=== PATIENT | male | born 1975 | race African-American/Black ===

== ENCOUNTER 2018-07-13 16:35 | Inpatient (IN) | payer BC, OTHER ==
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
[2018-07-13] MEDS ORDERED: ALBUTEROL SO4 2.5/IPRATROPIUM 0.5 INH SOL 3 ML VIAL.NEB. NEB ONE ×2 (19:59→20:42)
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
[2018-07-13 20:33] LABS: BASO % 0.8 % (0-2.0); EOS % 0.1 % (0-4.5); HEMATOCRIT 38.6 % (35.4-49); HEMOGLOBIN 13.2 GM/dL (11.7-16.9); LYMPH % 20.7 % (8-40); MCH 31.8 pg (25.7-33.7); MCHC 34.3 g/dl (32.0-35.9); MEAN CELL VOLUME 92.8 fl (80-96); MEAN PLT VOLUME 8.9 fl (7.5-11.1); MONO % 13.9 % (3.8-10.2); NEUT % 64.5 % (42.8-82.8); RBC 4.16 M/mm3 (4.00-5.60); RDW 13.4 % (11.9-15.9); WHITE BLOOD COUNT 5.9 K/mm3 (4.0-10.0)
[2018-07-13 20:53] LABS: URINE APPEARANCE CLEAR; URINE COLOR AMBER; URINE GLUCOSE (UA) NEGATIVE (NEGATIVE); URINE KETONE NEGATIVE (NEGATIVE); URINE LEUK ESTERASE NEGATIVE (NEGATIVE); URINE NITRITE NEGATIVE (NEGATIVE); URINE PROTEIN 1+ (NEGATIVE); URINE UROBILINOGEN 4.0 E.U/dl mg/dL (0.2-1.0)
[2018-07-13 20:54] LABS: EPI CELLS RARE /HPF (FEW); URINE MUCUS MANY
[2018-07-13 20:55] LABS: ALBUMIN 3.8 g/dl (3.4-5.0); ALK PHOS 88 U/L (45-117); ANION GAP 9 (8-16); BILIRUBIN,TOTAL 1.1 mg/dL (0.2-1.0); BLOOD UREA NITROGEN 10 mg/dL (7-18); CALCIUM 9.5 mg/dL (8.5-10.1); CHLORIDE 99 mmol/L (98-107); CO2 29 mmol/L (21-32); CREATININE 1.6 mg/dL (0.7-1.3); GLUCOSE,RANDOM 103 mg/dL (74-106); POTASSIUM 4.1 mmol/L (3.5-5.1); SGOT/AST 95 U/L (15-37); SGPT/ALT 165 U/L (12-78); SODIUM 137 mmol/L (136-145)
[2018-07-13 20:59] LABS: PLATELET COUNT 262 K/MM3 (134-434); PLATELET ESTIMATE ADEQUATE
[2018-07-13] MEDS ORDERED: SODIUM CHLORIDE 0.9% 500 ML INFUS.BAG IV ONE (21:25)
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
[2018-07-14] MEDS ORDERED: cefTRIAXone SODIUM 1 GM VIAL ONE ×2 (02:35→21:10)
[2018-07-14] MEDS ORDERED: DEXTROSE 5%-WATER - 50 ML IVPB ONE ×2 (02:35→21:10)
[2018-07-14] MEDS: CEFTRIAXONE 1 GM in DEXTROSE 5%-WATER - 50 ML IVPB SCH ×4 (02:50→21:14)
[2018-07-14] MEDS: predniSONE 20 MG TABLET (UD) PO SCH (02:51)
[2018-07-14] MEDS: SODIUM CHLORIDE 1,000 ML IV SCH ×2 (02:52→15:53)
[2018-07-14] MEDS: AZITHROMYCIN IVPB 500 MG in DEXTROSE 5%-WATER - 250 ML IVPB SCH ×2 (03:30→22:50)
[2018-07-14 04:30] VITALS: BMI 33.7
[2018-07-14] MEDS ORDERED: PT OWN MED DRAWER 7, Y5N ONE ×2 (06:14→12:31)
--- NOTE | 2018-07-14 07:01 | HP ---
CHIEF COMPLAINT:Cough, fever and chills PCP:Dr. Hayward HISTORY OF PRESENT ILLNESS: Patient is a 43 year old male with past medical history of asthma, presented with cough, fever, chills and night sweats for 3 days. Patient had productive cough with white sputum that started 3 days ago. He consulted PCP the next day, was considered to have pneumonia and was given Levaquin 750 mg BID. One day prior, patient had CXR, called by PCP to have pneumonia vs aelectasis and was told to go to the ED. Patient also complained of mild diffuse abdominal pain 5 days ago after eating ground burger. This was accompanied by watery diarrhea that resolved three days ago. Patient was also known to have started on some supplements that contains L- arginine and creatine 1 week ago. Patient denies chest pain, SOB, palpitations, diarrhea, constipation, dysuria. ER course was notable for: (1)Cr 1.6, AST 95, ALT 165 (2)chest CT - right middle lobe pneumonia (3)RUQ U/S - no abnormal findings Recent Travel:denies any recent travel PAST MEDICAL HISTORY: Asthma PAST SURGICAL HISTORY: none Social History: Smoking: nonsmoker Alcohol:occasional EtOH drinker Drugs: denies illicit drug use Family History: Allergies No Known Allergies Allergy (Verified 07/13/18 16:51) HOME MEDICATIONS: Home Medications Medication Instructions Recorded Ipratropium/Albuterol Sulfate 4 gm IH BID 10/26/16 [Combivent Respimat Inhal [place]] REVIEW OF SYSTEMS CONSTITUTIONAL:+fever, chills , generalized weakness Absent: diaphoresis, malaise, loss of appetite, weight change HEENT: Absent: rhinorrhea, nasal congestion, throat pain, throat swelling, difficulty swallowing, mouth swelling, ear pain, eye pain, visual changes CARDIOVASCULAR: Absent: chest pain, syncope, palpitations, irregular heart rate, lightheadedness , peripheral edema RESPIRATORY: +cough Absent: shortness of breath, dyspnea with exertion, orthopnea, wheezing, stridor , hemoptysis GASTROINTESTINAL: Absent: abdominal pain, abdominal distension, nausea, vomiting, diarrhea, constipation, melena, hematochezia GENITOURINARY: Absent: dysuria, frequency, urgency, hesitancy, hematuria, flank pain, genital pain MUSCULOSKELETAL: Absent: myalgia, arthralgia, joint swelling, back pain, neck pain SKIN: Absent: rash, itching, pallor HEMATOLOGIC/IMMUNOLOGIC: Absent: easy bleeding, easy bruising, lymphadenopathy, frequent infections ENDOCRINE: Absent: unexplained weight gain, unexplained weight loss, heat intolerance, cold intolerance NEUROLOGIC: Absent: headache, focal weakness or paresthesias, dizziness, unsteady gait, seizure, mental status changes, bladder or bowel incontinence PSYCHIATRIC: Absent: anxiety, depression, suicidal or homicidal ideation, hallucinations. PHYSICAL EXAMINATION Vital Signs - 24 hr 07/13/18 07/14/18 16:52 04:08 Temperature 99.1 F 99.3 F Pulse Rate 82 80 Respiratory 16 16 Rate Blood Pressure 125/76 108/56 O2 Sat by Pulse 97 Oximetry (%) GENERAL: Awake, alert, and fully oriented, in no acute distress. HEAD: Normal with no signs of trauma. EYES: PERRLA, EOMI, sclera anicteric, conjunctiva clear. No lid lag. EARS, NOSE, THROAT: Ears normal, nares patent, oropharynx clear without exudates. Moist mucous membranes. NECK: Normal range of motion, supple without lymphadenopathy, JVD, or masses. LUNGS: +crackles, R, clear to auscultation, L HEART: Regular rate and rhythm, normal S1 and S2 without murmur, rub or gallop. ABDOMEN: Soft, nontender, not distended, normoactive bowel sounds. MUSCULOSKELETAL: Normal range of motion at all joints. No bony deformities or tenderness. No CVA tenderness. UPPER EXTREMITIES: 2+ pulses, warm, well-perfused. No cyanosis. No clubbing. No peripheral edema. LOWER EXTREMITIES: 2+ pulses, warm, well-perfused. No calf tenderness. No peripheral edema. NEUROLOGICAL: Cranial nerves II-XII intact. Normal speech. Normal gait. PSYCHIATRIC: Cooperative. Good eye contact. Appropriate mood and affect. SKIN: Warm, dry, normal turgor, no rashes or lesions. Laboratory Results - last 24 hr 07/13/18 07/13/18 07/13/18 20:20 20:20 20:30 WBC 5.9 RBC 4.16 Hgb 13.2 Hct 38.6 MCV 92.8 MCH 31.8 MCHC 34.3 RDW 13.4 Plt Count 262 MPV 8.9 Absolute Neuts (auto) 3.8 Neutrophils % 64.5 Lymphocytes % 20.7 Monocytes % 13.9 H Eosinophils % 0.1 Basophils % 0.8 Nucleated RBC % 0 Platelet Estimate Adequate Platelet Comment Rare giant plts Sodium 137 Potassium 4.1 Chloride 99 Carbon Dioxide 29 Anion Gap 9 BUN 10 Creatinine 1.6 H Creat Clearance w eGFR 47.41 Random Glucose 103 Calcium 9.5 Total Bilirubin 1.1 H AST 95 H ALT 165 H Alkaline Phosphatase 88 Total Protein 8.0 Albumin 3.8 Lipase Urine Color Zaida Urine Appearance Clear Urine pH 5.0 Ur Specific Ar[place]illa 1.030 Urine Protein 1+ H Urine Glucose (UA) Negative Urine Ketones Negative Urine Blood Negative Urine Nitrite Negative Urine Bilirubin 2.0 Urine Urobilinogen 4.0 e.u/dl Ur Leukocyte Esterase Negative Urine WBC (Auto) 1 Urine RBC (Auto) 6 Ur Epithelial Cells Rare Urine Mucus Many 07/13/18 22:29 WBC RBC Hgb Hct MCV MCH MCHC RDW Plt Count MPV Absolute Neuts (auto) Neutrophils % Lymphocytes % Monocytes % Eosinophils % Basophils % Nucleated RBC % Platelet Estimate Platelet Comment Sodium Potassium Chloride Carbon Dioxide Anion Gap BUN Creatinine Creat Clearance w eGFR Random Glucose Calcium Total Bilirubin AST ALT Alkaline Phosphatase Total Protein Albumin Lipase 135 Urine Color Urine Appearance Urine pH Ur Specific [place] Urine Protein Urine Glucose (UA) Urine Ketones Urine Blood Urine Nitrite Urine Bilirubin Urine Urobilinogen Ur Leukocyte Esterase Urine WBC (Auto) Urine RBC (Auto) Ur Epithelial Cells Urine Mucus CBC, BMP 07/13/18 20:20 07/13/18 20:20 ASSESSMENT/PLAN: Patient is a 43 year old male with past medical history of asthma, presented with cough, fever, chills and night sweats for 3 days. #Community acquired pneumonia -Chest CT -right middle lobe pneumonia, borderline mediastinal LAD indeterminate -Started Rocephin 1 gm and Azithromycin 500 mg -Prednisone 40 mg PO, Duoneb and Symbicort ordered. #Elevated LFTs: patient recently started on supplements -Hepatitis profile ordered -Trend LFTs. -IV fluid started #FEN -IV NS (0.9%) at 100ml/hr -electrolytes wnl, routine bmp monitoring -regular diet #Prophylaxis -Heparin 5000 unit sq tid #Disposition -admit to obs -full code Visit type - Emergency Visit Emergency Visit: Yes ED Registration Date: 07/13/18 Care time: The patient presented to the Emergency Department on the above date and was hospitalized for further evaluation of their emergent condition. - New Patient This patient is new to me today: Yes Date on this admission: 07/14/18 - Critical Care Critical Care patient: No Hospitalist Screening - Colonoscopy Questionnaire Colonoscopy Questionnaire: Colonoscopy Questionnaire - Patient: 50 - 75 years old and never had a screening colonoscopy: Unknown History of colon or rectal polyps, or CA: Unknown History of IBD, Crohn's disease or UC: Unknown History of abdominal radiation therapy as a child: Unknown - Relative: 1 with colon or rectal CA, or polyps at age 60 or younger: Unknown Colon or rectal CA diagnosed at age 45 or younger: Unknown Multiple relatives with colon or rectal CA: Unknown - Outcome: Screening Result: Negative Screen
[2018-07-14] MEDS: ALBUTEROL SO4 2.5/IPRATROPIUM 0.5 INH SOL 3 ML VIAL.NEB. NEB SCH ×2 (08:43→20:55)
[2018-07-14 09:52] LABS: BASO % 0.5 % (0-2.0); HEMATOCRIT 35.5 % (35.4-49); HEMOGLOBIN 12.6 GM/dL (11.7-16.9); LYMPH % 18.8 % (8-40); MCH 32.8 pg (25.7-33.7); MCHC 35.4 g/dl (32.0-35.9); MEAN CELL VOLUME 92.6 fl (80-96); MEAN PLT VOLUME 8.7 fl (7.5-11.1); MONO % 3.8 % (3.8-10.2); NEUT % 76.9 % (42.8-82.8); PLATELET COUNT 267 K/MM3 (134-434); RBC 3.83 M/mm3 (4.00-5.60); RDW 13.3 % (11.9-15.9); WHITE BLOOD COUNT 4.9 K/mm3 (4.0-10.0)
[2018-07-14] MEDS ORDERED: CEFTRIAXONE 1 GM in DEXTROSE 5%-WATER - 100 ML IVPB SCH (10:00)
[2018-07-14] MEDS ORDERED: AZITHROMYCIN IVPB 500 MG in DEXTROSE 5%-WATER - 250 ML IVPB SCH (10:00)
--- NOTE | 2018-07-14 10:00 | EKG ---
Test Reason : Blood Pressure : / mmHG Vent. Rate : 082 BPM Atrial Rate : 082 BPM P-R Int : 176 ms QRS Dur : 092 ms QT Int : 380 ms P-R-T Axes : 056 -02 -03 degrees QTc Int : 443 ms NORMAL SINUS RHYTHM NONSPECIFIC T WAVE ABNORMALITY ABNORMAL ECG NO PREVIOUS ECGS AVAILABLE Confirmed by BRYAN SOTO MD ([id number]) on 07/14/2018 10:00:28 AM Referred By: Confirmed By:BRYAN SOTO MD
[2018-07-14 10:15] LABS: ANION GAP 11 (8-16); BLOOD UREA NITROGEN 10 mg/dL (7-18); CALCIUM 9.3 mg/dL (8.5-10.1); CHLORIDE 103 mmol/L (98-107); CO2 25 mmol/L (21-32); CREATININE 1.3 mg/dL (0.7-1.3); GLUCOSE,RANDOM 111 mg/dL (74-106); POTASSIUM 4.4 mmol/L (3.5-5.1); SODIUM 139 mmol/L (136-145)
--- NOTE | 2018-07-14 11:53 | PN ---
<Hayley Vera - Last Filed: 07/14/18 12:34> Physical Exam: SUBJECTIVE: Patient seen and examined at bedside. Pt reports feeling clammy with mild sweating. He also admits to shortness of breath, but has improved since admission. Admits to productive cough w/ clear sputum. Denies fever/chills , nausea/vomiting, headaches/dizziness. Admits to poor appetite. OBJECTIVE: Vital Signs Vital Signs Temperature 99.3 F 07/14/18 04:08 Pulse Rate 80 07/14/18 04:08 Respiratory Rate 16 07/14/18 04:08 Blood Pressure 108/56 07/14/18 04:08 O2 Sat by Pulse Oximetry (%) 97 07/13/18 16:52 GENERAL: Awake, alert, and fully oriented, in no acute distress. mild diaphoresis. HEENT: AT/NC. EOMI. Moist mucus membranes. NECK: Normal range of motion, supple without lymphadenopathy, JVD, or masses. LUNGS: +crackles, R, Symmetric chest rise. HEART: Regular rate and rhythm, normal S1 and S2 without murmur, rub or gallop. ABDOMEN: Soft, nontender, not distended, normoactive bowel sounds. MUSCULOSKELETAL: Normal range of motion at all joints. No bony deformities or tenderness. No CVA tenderness. UPPER EXTREMITIES: 2+ pulses, warm, well-perfused. No cyanosis. No clubbing. No peripheral edema. LOWER EXTREMITIES: 2+ pulses, warm, well-perfused. No calf tenderness. No peripheral edema. NEUROLOGICAL: Cranial nerves II-XII intact. Normal speech. Normal gait. PSYCHIATRIC: Cooperative. Good eye contact. Appropriate mood and affect. SKIN: Warm, dry, normal turgor, no rashes or lesions. Laboratory Results - last 24 hr CBC, BMP 07/14/18 09:10 07/14/18 09:10 Hepatic Panel Total Bilirubin 1.1 mg/dL (0.2-1.0) H 07/13/18 20:20 AST 95 U/L (15-37) H 07/13/18 20:20 ALT 165 U/L (12-78) H 07/13/18 20:20 Alkaline Phosphatase 88 U/L (45-117) 07/13/18 20:20 Albumin 3.8 g/dl (3.4-5.0) 07/13/18 20:20 Home Medication List Medication Instructions Recorded Confirmed Type Ipratropium/Albuterol Sulfate 4 gm IH BID 10/26/16 10/28/16 History [Combivent Respimat Inhal Citronelle] Active Medications Active Medications Albuterol/Ipratropium (Duoneb -) 1 amp NEB RBID [facility] Last Admin: 07/14/18 08:43 Dose: 1 amp Budesonide/Formoterol Fumarate (Symbicort 80/4.5mcg -) 2 puff IH BID [facility] Heparin Sodium (Porcine) (Heparin -) 5,000 unit SQ TID LEO Sodium Chloride (Normal Saline -) 1,000 mls @ 100 mls/hr IV ASDIR [facility] Last Admin: 07/14/18 02:52 Dose: 100 mls/hr Azithromycin 500 mg/ Dextrose 250 mls @ 250 mls/hr IVPB HS [facility] Last Admin: 07/14/18 03:30 Dose: 250 mls/hr Ceftriaxone Sodium 1 gm/ (Dextrose) 50 mls @ 100 mls/hr IVPB HS [facility]; Protocol Last Admin: 07/14/18 02:50 Dose: 100 mls/hr Prednisone (Deltasone -) 40 mg PO DAILY [facility] Last Admin: 07/14/18 02:51 Dose: 40 mg IMAGING: CXR: Right middle lobe pneumonia. CT chest: Right middle lobe consolidation/pneumonia as well as mild atelectatic changes in both lower lobes and lingular segment of the left upper lobe. Cannot rule out superimposed infiltrates. No pneumothorax or pleural effusion are identified. Follow-up is needed. Subcentimeter and borderline paratracheal and precarinal lymph nodes which are nonspecific RUQ Abd U/s: Negative exam. No definite sonographic abnormality is identified as discussed above. ASSESSMENT/PLAN: 43M with past medical history of asthma, presented with cough, fever, chills and night sweats for 3 days admitted for R middle lobe pna. #Community acquired pneumonia -Chest CT: R middle lobe pna, borderline mediastinal LAD indeterminate -cont Ceftriaxone 50cc @ 100cc/hr IVPB HS -cont Azithromycin 250cc @250cc/hr IVPB HS -cont Prednisone 40 mg PO QD #Asthma -cont Duoneb -cont Symbicort #Elevated LFTs; Possibly due to new exercise supplement pt began taking, creatine and l-arginine. -AST 96, ALT 165; cont to trend -f/u hepatitis panel -IV NS @ 100cc/hr #FEN -IV NS @ 100cc/hr -electrolytes wnl, routine bmp monitoring -regular diet #Prophylaxis -Heparin 5000U SQ TID dispo -cont to monitor on obs -full code Visit type - Emergency Visit Emergency Visit: Yes ED Registration Date: 07/13/18 Care time: The patient presented to the Emergency Department on the above date and was hospitalized for further evaluation of their emergent condition. - New Patient This patient is new to me today: Yes Date on this admission: 07/14/18 - Critical Care Critical Care patient: No <Tiffany Armendariz - Last Filed: 07/14/18 18:11> Physical Exam: Patient is comfortable with no acute distress. Vital Signs Temperature 98.1 F 07/14/18 17:26 Pulse Rate 67 07/14/18 17:26 Respiratory Rate 20 07/14/18 17:26 Blood Pressure 112/65 07/14/18 17:26 O2 Sat by Pulse Oximetry (%) 94 L 07/14/18 09:00 CBCD WBC 4.9 K/mm3 (4.0-10.0) 07/14/18 09:10 RBC 3.83 M/mm3 (4.00-5.60) L 07/14/18 09:10 Hgb 12.6 GM/dL (11.7-16.9) 07/14/18 09:10 Hct 35.5 % (35.4-49) 07/14/18 09:10 MCV 92.6 fl (80-96) 07/14/18 09:10 MCHC 35.4 g/dl (32.0-35.9) 07/14/18 09:10 RDW 13.3 % (11.9-15.9) 07/14/18 09:10 Plt Count 267 K/MM3 (134-434) 07/14/18 09:10 MPV 8.7 fl (7.5-11.1) 07/14/18 09:10 CMP Sodium 139 mmol/L (136-145) 07/14/18 09:10 Potassium 4.4 mmol/L (3.5-5.1) 07/14/18 09:10 Chloride 103 mmol/L (98-107) 07/14/18 09:10 Carbon Dioxide 25 mmol/L (21-32) 07/14/18 09:10 Anion Gap 11 (8-16) 07/14/18 09:10 BUN 10 mg/dL (7-18) 07/14/18 09:10 Creatinine 1.3 mg/dL (0.7-1.3) 07/14/18 09:10 Creat Clearance w eGFR > 60 (>60) 07/14/18 09:10 Random Glucose 111 mg/dL (74-106) H 07/14/18 09:10 Calcium 9.3 mg/dL (8.5-10.1) 07/14/18 09:10 Total Bilirubin 1.1 mg/dL (0.2-1.0) H 07/13/18 20:20 AST 95 U/L (15-37) H 07/13/18 20:20 ALT 165 U/L (12-78) H 07/13/18 20:20 Alkaline Phosphatase 88 U/L (45-117) 07/13/18 20:20 Total Protein 8.0 g/dl (6.4-8.2) 07/13/18 20:20 Albumin 3.8 g/dl (3.4-5.0) 07/13/18 20:20 Current Medications Generic Name Dose Route Start Last Admin Trade Name Freq PRN Reason Stop Dose Admin Albuterol/Ipratropium 1 amp 07/14/18 08:00 07/14/18 08:43 Duoneb - NEB 1 amp RBID LEO Administration Budesonide/Formoterol Fumarate 2 puff 07/14/18 10:00 07/14/18 12:36 Symbicort 80/4.5mcg - IH 2 puff BID LEO Administration Heparin Sodium (Porcine) 5,000 unit 07/14/18 14:00 07/14/18 14:42 Heparin - SQ 5,000 unit TID [facility]O Administration Sodium Chloride 1,000 mls @ 100 mls/hr 07/14/18 01:30 07/14/18 15:53 Normal Saline - IV 100 mls/hr ASDIR [facility]O Administration Azithromycin 500 mg/ Dextrose 250 mls @ 250 mls/hr 07/14/18 01:45 07/14/18 03 :30 IVPB 250 mls/hr HS LEO Administration Ceftriaxone Sodium 1 gm/ 50 mls @ 100 mls/hr 07/14/18 02:45 07/14/18 02:50 Dextrose IVPB 100 mls/hr HS [facility]O Administration Protocol Prednisone 40 mg 07/14/18 01:30 07/14/18 02:51 Deltasone - PO 40 mg DAILY [facility] Administration Home Medications Medication Instructions Recorded Budesonide [Pulmicort Flexhaler] 180 mcg IH BID 07/14/18 Clindamycin HCl 150 mg PO TID 07/14/18 Ibuprofen 800 mg PO Q6H PRN 07/14/18 Levofloxacin 750 mg PO DAILY 07/14/18 Pantoprazole Sodium 40 mg PO DAILY 07/14/18 # Acute Pneumonia : on Rocephin IV 1gm daily, and Zithromax 500mg IV daily . patient was on po Levaquin 750mg daily. was treated partially.
[2018-07-14] MEDS: BUDESONIDE/FORMETEROL FUMARATE 80/4.5 mcg INHALER IH SCH ×2 (12:36→21:13)
--- NOTE | 2018-07-14 12:37 | ECHO ---
Name: RAAD GLEZ Exam:Adult Echocardiogram Study Date: 07/14/2018 08:01 AM Age: 43 yrs Reason For Study: RULE OUT CHF Height: 68 in Weight: 217 lb BSA: 2.1 m2 MMode/2D Measurements & Calculations IVSd: 1.1 cm Ao root diam: 3.1 cm LVIDd: 4.6 cm LA dimension: 3.2 cm LVIDs: 2.9 cm LVPWd: 0.98 cm EDV(Teich): 97.7 ml ESV(Teich): 31.4 ml Doppler Measurements & Calculations MV E max ronald: 111.0 cm/sec TR max ronald: 258.6 cm/sec MV A max ronald: 64.0 cm/sec TR max P.7 mmHg MV E/A: 1.7 MV dec time: 0.51 sec Med Peak E' Ronald: 9.7 cm/sec PI Vmax: 104.5 cm/sec Med E/e': 11.5 Lat Peak E' Ronald: 12.5 cm/sec Lat E/e': 8.9 Procedure A complete two-dimensional transthoracic echocardiogram was performed (2D, M-mode, Doppler and color flow Doppler). Left Ventricle The left ventricular size, thickness and function are normal. Ejection Fraction = 60-65%. The left ve ntricular wall motion is normal. Right Ventricle The right ventricle is normal in size and function. Atria Normal left and right atrial size and function. Mitral Valve There is no mitral regurgitation noted. Tricuspid Valve There is trace tricuspid regurgitation. There was insufficient TR detected to calculate RV systolic p ressure. Aortic Valve The aortic valve is trileaflet. No hemodynamically significant valvular aortic stenosis. No aortic regurgitation is present. Pulmonic Valve There is no pulmonic valvular regurgitation. Great Vessels The aortic root is normal size. Pericardium/Pleura There is no pericardial effusion. Interpretation Summary The left ventricular size, thickness and function are normal. The right ventricle is normal in size and function. There is trace tricuspid regurgitation. MD Raleigh Kaplan 07/14/2018 12:36 PM
[2018-07-14] MEDS: HEPARIN NA (PORCINE) 5,000 UNITS/ML 1ML VIAL SQ SCH ×2 (14:42→21:14)
[2018-07-15 06:16] LABS: HEP.C VIRUS AB 0.1 s/co ratio (0.0-0.9)
[2018-07-15] MEDS: SODIUM CHLORIDE 1,000 ML IV SCH (06:46)
[2018-07-15] MEDS: HEPARIN NA (PORCINE) 5,000 UNITS/ML 1ML VIAL SQ SCH ×2 (06:46→14:40)
[2018-07-15 07:15] LABS: HEMATOCRIT 33.2 % (35.4-49); HEMOGLOBIN 11.3 GM/dL (11.7-16.9); MCH 32.3 pg (25.7-33.7); MCHC 34.2 g/dl (32.0-35.9); MEAN CELL VOLUME 94.5 fl (80-96); MEAN PLT VOLUME 8.8 fl (7.5-11.1); PLATELET COUNT 286 K/MM3 (134-434); RBC 3.51 M/mm3 (4.00-5.60); RDW 13.2 % (11.9-15.9); WHITE BLOOD COUNT 5.5 K/mm3 (4.0-10.0)
[2018-07-15 07:54] LABS: ALBUMIN 2.9 g/dl (3.4-5.0); ANION GAP 8 (8-16); BLOOD UREA NITROGEN 10 mg/dL (7-18); CALCIUM 8.5 mg/dL (8.5-10.1); CHLORIDE 107 mmol/L (98-107); CO2 27 mmol/L (21-32); GLUCOSE,RANDOM 85 mg/dL (74-106); POTASSIUM 4.4 mmol/L (3.5-5.1); SODIUM 142 mmol/L (136-145)
[2018-07-15 07:57] LABS: ALK PHOS 73 U/L (45-117); BILIRUBIN,TOTAL 0.6 mg/dL (0.2-1.0); CREATININE 1.2 mg/dL (0.7-1.3); SGOT/AST 171 U/L (15-37); SGPT/ALT 275 U/L (12-78); TOT PROT 5.9 g/dl (6.4-8.2)
[2018-07-15] MEDS: ALBUTEROL SO4 2.5/IPRATROPIUM 0.5 INH SOL 3 ML VIAL.NEB. NEB SCH (08:12)
--- NOTE | 2018-07-15 09:23 | PN ---
Physical Exam: SUBJECTIVE: Patient seen and examined at bedside. No acute events overnight. OBJECTIVE: Vital Signs Period Temp Pulse Resp BP Sys/[place] Pulse Ox Last 24 Hr 97.7 F-98.1 F 60-67 20-20 96-112/54-65 95 GENERAL: Awake, alert, and fully oriented, in no acute distress. HEENT: AT/NC. EOMI. Moist mucus membranes. NECK: Normal range of motion, supple without lymphadenopathy, JVD, or masses. LUNGS: Diminished breath sounds in R lower lung base. Symmetric chest rise. HEART: Regular rate and rhythm, normal S1 and S2 without murmur, rub or gallop. ABDOMEN: Soft, nontender, not distended, normoactive bowel sounds. MUSCULOSKELETAL: Normal range of motion at all joints. No bony deformities or tenderness. No CVA tenderness. UPPER EXTREMITIES: 2+ pulses, warm, well-perfused. No cyanosis. No clubbing. No peripheral edema. LOWER EXTREMITIES: 2+ pulses, warm, well-perfused. No calf tenderness. No peripheral edema. NEUROLOGICAL: Cranial nerves II-XII intact. Normal speech. Normal gait. PSYCHIATRIC: Cooperative. Good eye contact. Appropriate mood and affect. SKIN: Warm, dry, normal turgor, no rashes or lesions. Laboratory Results - last 24 hr CBC, BMP 07/15/18 06:00 07/15/18 06:00 Hepatic Panel Total Bilirubin 0.6 mg/dL (0.2-1.0) 07/15/18 06:00 AST 171 U/L (15-37) H D 07/15/18 06:00 ALT 275 U/L (12-78) H D 07/15/18 06:00 Alkaline Phosphatase 73 U/L (45-117) D 07/15/18 06:00 Albumin 2.9 g/dl (3.4-5.0) L 07/15/18 06:00 Active Medications Albuterol/Ipratropium (Duoneb -) 1 amp NEB RBID [facility] Last Admin: 07/15/18 08:12 Dose: 1 amp Budesonide/Formoterol Fumarate (Symbicort 80/4.5mcg -) 2 puff IH BID [facility] Last Admin: 07/14/18 21:13 Dose: Not Given Heparin Sodium (Porcine) (Heparin -) 5,000 unit SQ TID [facility] Last Admin: 07/15/18 06:46 Dose: 5,000 unit Sodium Chloride (Normal Saline -) 1,000 mls @ 100 mls/hr IV ASDIR [facility] Last Admin: 07/15/18 06:46 Dose: 100 mls/hr Azithromycin 500 mg/ Dextrose 250 mls @ 250 mls/hr IVPB HS [facility] Last Admin: 07/14/18 22:50 Dose: 250 mls/hr Ceftriaxone Sodium 1 gm/ (Dextrose) 50 mls @ 100 mls/hr IVPB HS [facility]; Protocol Last Admin: 07/14/18 21:14 Dose: 100 mls/hr Prednisone (Deltasone -) 40 mg PO DAILY [facility] Last Admin: 07/14/18 02:51 Dose: 40 mg IMAGING: CXR: Right middle lobe pneumonia. CT chest: Right middle lobe consolidation/pneumonia as well as mild atelectatic changes in both lower lobes and lingular segment of the left upper lobe. Cannot rule out superimposed infiltrates. No pneumothorax or pleural effusion are identified. Follow-up is needed. Subcentimeter and borderline paratracheal and precarinal lymph nodes which are nonspecific RUQ Abd U/s: Negative exam. No definite sonographic abnormality is identified as discussed above. ASSESSMENT/PLAN: 43M with past medical history of asthma, presented with cough, fever, chills and night sweats for 3 days admitted for R middle lobe pna. #Community acquired pneumonia -Chest CT: R middle lobe pna, borderline mediastinal LAD indeterminate -cont Ceftriaxone 50cc @ 100cc/hr IVPB HS -cont Azithromycin 250cc @250cc/hr IVPB HS -cont Prednisone 40 mg PO QD #Asthma -cont Duoneb -cont Symbicort #Elevated LFTs; likely acute reactive hepatitis to the ongoing pna -f/u hepatitis panel -Per GI: Rec to stop taking all non-essential med/supplements, trend LFTs #Prophylaxis -Heparin 5000U SQ TID #FEN -IV NS @ 100cc/hr -electrolytes wnl, routine bmp monitoring -regular diet dispo -cont to monitor on obs -full code Visit type - Emergency Visit Emergency Visit: Yes ED Registration Date: 07/15/18 Care time: The patient presented to the Emergency Department on the above date and was hospitalized for further evaluation of their emergent condition. - New Patient This patient is new to me today: No - Critical Care Critical Care patient: No
[2018-07-15] MEDS ORDERED: SODIUM CHLORIDE 1,000 ML IV SCH (09:45)
[2018-07-15] MEDS: predniSONE 20 MG TABLET (UD) PO SCH (10:11)
[2018-07-15] MEDS: BUDESONIDE/FORMETEROL FUMARATE 80/4.5 mcg INHALER IH SCH (10:11)
--- NOTE | 2018-07-15 14:38 | PN ---
Teaching Attending Note Name of Resident: Hayley Vera ATTENDING PHYSICIAN STATEMENT I saw and evaluated the patient. I reviewed the resident's note and discussed the case with the resident. I agree with the resident's findings and plan as documented. SUBJECTIVE: Comfortable with no further shortenss of breath, no nausea or vomting. OBJECTIVE: Vital Signs Temperature 98.0 F 07/15/18 08:43 Pulse Rate 60 07/15/18 08:43 Respiratory Rate 20 07/15/18 08:43 Blood Pressure 96/58 07/15/18 08:43 O2 Sat by Pulse Oximetry (%) 95 07/14/18 21:00 CBCD WBC 5.5 K/mm3 (4.0-10.0) 07/15/18 06:00 RBC 3.51 M/mm3 (4.00-5.60) L 07/15/18 06:00 Hgb 11.3 GM/dL (11.7-16.9) L 07/15/18 06:00 Hct 33.2 % (35.4-49) L 07/15/18 06:00 MCV 94.5 fl (80-96) 07/15/18 06:00 MCHC 34.2 g/dl (32.0-35.9) 07/15/18 06:00 RDW 13.2 % (11.9-15.9) 07/15/18 06:00 Plt Count 286 K/MM3 (134-434) 07/15/18 06:00 MPV 8.8 fl (7.5-11.1) 07/15/18 06:00 CMP Sodium 142 mmol/L (136-145) 07/15/18 06:00 Potassium 4.4 mmol/L (3.5-5.1) 07/15/18 06:00 Chloride 107 mmol/L (98-107) 07/15/18 06:00 Carbon Dioxide 27 mmol/L (21-32) 07/15/18 06:00 Anion Gap 8 (8-16) 07/15/18 06:00 BUN 10 mg/dL (7-18) 07/15/18 06:00 Creatinine 1.2 mg/dL (0.7-1.3) 07/15/18 06:00 Creat Clearance w eGFR > 60 (>60) 07/15/18 06:00 Random Glucose 85 mg/dL (74-106) D 07/15/18 06:00 Calcium 8.5 mg/dL (8.5-10.1) 07/15/18 06:00 Total Bilirubin 0.6 mg/dL (0.2-1.0) 07/15/18 06:00 AST 171 U/L (15-37) H D 07/15/18 06:00 ALT 275 U/L (12-78) H D 07/15/18 06:00 Alkaline Phosphatase 73 U/L (45-117) D 07/15/18 06:00 Total Protein 5.9 g/dl (6.4-8.2) L D 07/15/18 06:00 Albumin 2.9 g/dl (3.4-5.0) L 07/15/18 06:00 Current Medications Generic Name Dose Route Start Last Admin Trade Name Freq PRN Reason Stop Dose Admin Albuterol/Ipratropium 1 amp 07/14/18 08:00 07/15/18 08:12 Duoneb - NEB 1 amp RBID LEO Administration Budesonide/Formoterol Fumarate 2 puff 07/14/18 10:00 07/15/18 10:11 Symbicort 80/4.5mcg - IH Not Given BID LEO Heparin Sodium (Porcine) 5,000 unit 07/14/18 14:00 07/15/18 06:46 Heparin - SQ 5,000 unit TID [facility]O Administration Sodium Chloride 1,000 mls @ 100 mls/hr 07/14/18 01:30 07/15/18 06:46 Normal Saline - IV 100 mls/hr ASDIR [facility] Administration Azithromycin 500 mg/ Dextrose 250 mls @ 250 mls/hr 07/14/18 01:45 07/14/18 22 :50 IVPB 250 mls/hr HS [facility]O Administration Ceftriaxone Sodium 1 gm/ 50 mls @ 100 mls/hr 07/14/18 02:45 07/14/18 21:14 Dextrose IVPB 100 mls/hr HS [facility]O Administration Protocol Prednisone 40 mg 07/14/18 01:30 07/15/18 10:11 Deltasone - PO 40 mg DAILY [facility]O Administration Home Medications Medication Instructions Recorded Budesonide [Pulmicort Flexhaler] 180 mcg IH BID 07/14/18 Clindamycin HCl 150 mg PO TID 07/14/18 Ibuprofen 800 mg PO Q6H PRN 07/14/18 Levofloxacin 750 mg PO DAILY 07/14/18 Pantoprazole Sodium 40 mg PO DAILY 07/14/18 Cefuroxime Axetil [Ceftin -] 500 mg PO Q12H #14 tablet 07/15/18 PE: as per resident' s note Chest CT: R middle lobe pna, borderline mediastinal LAD indeterminate ASSESSMENT AND PLAN: 43M with past medical history of asthma, presented with cough, fever, chills and night sweats for 3 days admitted for R middle lobe pna. #Community acquired pneumonia on Rocephin will discahrge the patient on Ceftin. completed 3 day sof Zithromax #Asthma cont Duoneb, Symbicort taper dose of Prednisone # Elevated LFTs follow with Dr.Kogan CHARLES within a week ,repeat the levels, so far the w/u is negative.
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
--- NOTE | 2018-07-15 16:36 | DS ---
Physical Exam: SUBJECTIVE: No acute events overnight. OBJECTIVE: Vital Signs Period Temp Pulse Resp BP Sys/[place] Pulse Ox Last 24 Hr 97.7 F-98.1 F 60-67 20-20 96-112/54-65 95 PHYSICAL EXAM GENERAL: Awake, alert, and fully oriented, in no acute distress. HEENT: AT/NC. EOMI. Moist mucus membranes. NECK: Normal range of motion, supple without lymphadenopathy, JVD, or masses. LUNGS: Diminished breath sounds in R lower lung base. Symmetric chest rise. HEART: Regular rate and rhythm, normal S1 and S2 without murmur, rub or gallop. ABDOMEN: Soft, nontender, not distended, normoactive bowel sounds. MUSCULOSKELETAL: Normal range of motion at all joints. No bony deformities or tenderness. No CVA tenderness. UPPER EXTREMITIES: 2+ pulses, warm, well-perfused. No cyanosis. No clubbing. No peripheral edema. LOWER EXTREMITIES: 2+ pulses, warm, well-perfused. No calf tenderness. No peripheral edema. NEUROLOGICAL: Cranial nerves II-XII intact. Normal speech. Normal gait. PSYCHIATRIC: Cooperative. Good eye contact. Appropriate mood and affect. SKIN: Warm, dry, normal turgor, no rashes or lesions. LABS Laboratory Results - last 24 hr 07/14/18 07/15/18 07/15/18 09:10 06:00 06:00 WBC 5.5 RBC 3.51 L Hgb 11.3 L Hct 33.2 L MCV 94.5 MCH 32.3 MCHC 34.2 RDW 13.2 Plt Count 286 MPV 8.8 Sodium 142 Potassium 4.4 Chloride 107 Carbon Dioxide 27 Anion Gap 8 BUN 10 Creatinine 1.2 Creat Clearance w eGFR > 60 Random Glucose 85 D Calcium 8.5 Total Bilirubin 0.6 AST 171 H D ALT 275 H D Alkaline Phosphatase 73 D Total Protein 5.9 L D Albumin 2.9 L Hepatitis A IgM Ab Negative Hep Bs Antigen Negative Hep B Core IgM Ab Negative Hepatitis C Antibody 0.1 HOSPITAL COURSE: Date of Admission:07/15/18 IMAGING: CXR: Right middle lobe pneumonia. CT chest: Right middle lobe consolidation/pneumonia as well as mild atelectatic changes in both lower lobes and lingular segment of the left upper lobe. Cannot rule out superimposed infiltrates. No pneumothorax or pleural effusion are identified. Follow-up is needed. Subcentimeter and borderline paratracheal and precarinal lymph nodes which are nonspecific RUQ Abd U/s: Negative exam. No definite sonographic abnormality is identified as discussed above. 43M w/ pmhx of asthma, presented with cough, fever, chills and night sweats for 3 days admitted for R middle lobe pna. In the ED, CT chest showed r middle lobe consolidation/pna. Pt was started on Ceftriaxone and Azithromycin. On blood work , pt was found to have elevated liver enzymes. An abdominal U/s was done that was negative for abnormality. GI was consulted for his elevated liver enzymes. Upon GI eval, pt was suspected to likely have a reactive hepatitis due to his current pneumonia infection. He was instructed to follow up outpatient for further workup. During pt's hospital stay, his symptoms improved. He was discharged home with instructions to continue Ceftin and Prednisone for his pneumonia, as well as to follow up with his pcp. Date of Discharge: 07/15/18 Minutes to complete discharge: 35 Discharge Summary Reason For Visit: ELEVATED TRANSAMINASE MEASUREMENT;COUGH Current Active Problems Cough (Acute) Liver enzyme elevation (Acute) Condition: Improved - Instructions Diet, Activity, Other Instructions: You were admitted for the treatment of your pneumonia. During your stay, you were found to elevated liver enzymes. You will need to follow up with a bag shaker to investigate this further. We are sending you home with a medication to help fight your infection. You should take 500mg Ceftin twice per day for the next 7 more days. Please continue to take you antibiotics as prescribed for the level vial marker they are prescribed, even if you feel better. You should get a repeat liver blood test in 1 week in order to make sure that your liver enzymes are going down. You primary care doctor can provide you with a prescription for this. You should follow up with your primary care physician within one week. You should follow up with a GI specialist to further investigate your elevated liver enzymes. If you begin to experience chest pain, shortness of breath, fevers, chills or if any of your symptoms get worse, please call your doctor or return to the emergency department. Referrals: Natan Ceja MD [Staff Physician] - 1 Week Terry Hayward MD [Primary Care Provider] - 1 Week Disposition: HOME - Home Medications Comprehensive Discharge Medication List: Ambulatory Orders Budesonide [Pulmicort Flexhaler] 180 mcg IH BID 07/14/18 Pantoprazole Sodium 40 mg PO DAILY 07/14/18 Cefuroxime Axetil [Ceftin -] 500 mg PO Q12H #14 tablet 07/15/18 Prednisone See Taper PO DAILY #6 tablet 07/15/18 This patient is new to me today: No Emergency Visit: Yes ED Registration Date: 07/15/18 Care time: The patient presented to the Emergency Department on the above date and was hospitalized for further evaluation of their emergent condition. Critical Care patient: No - Discharge Referral Referred to [facility] Med P.C.: No
[2018-07-15 17:30] VITALS: BP 119/76; PULSE 63; TEMP 97.9
[2018-07-16 06:06] LABS: HBSAG SCREEN Negative (Negative); HEP A AB, IGM Negative (Negative); HEP B CORE AB, TOT Negative (Negative)
== END 2018-07-15 18:30 | disposition home or self-care (01) | DRG 195 ==
LOC: JER 16:35 → JERBED 22:22 → J8W 07-14 02:07 → OBSVTOIN 07-15 09:21
PROVIDERS: ADMIT Internal Medicine; ATTEND Internal Medicine
DX: J18.9 Pneumonia, unspecified organism (principal); J45.909 Unspecified asthma, uncomplicated; R13.10 Dysphagia, unspecified; R94.5 Abnormal results of liver function studies
CPT/HCPCS: 36415; 71046-TC-FY; 71250-TC; 76705-TC; 80048; 80053; 80074; 81003; 81015; 82172; 82977; 83010; 83690; 83883; 84460; 85025; 85027; 86704; 86706; 86708; 87086; 87340; 93005; 93010; 93306-TC; 94640; 99281-25; G0378; J1644; J7030; J7620